=== PATIENT | male | born 1945 | race Caucasian/White ===

== ENCOUNTER 2016-12-14 14:27 | Outpatient (CLI) | payer MEDICARE ==
--- NOTE | 2016-12-14 17:13 | RAD ---
TWO VIEW CHEST: 12/14/16 COMPARISON: 06/23/16 CLINICAL HISTORY: History of dyspnea, malignant neoplasm of bronchus and lung. FINDINGS: Redemonstration of spiculated density occupying the right apex with adjacent linear densities of the small volume right hemithorax. Interstitial prominence of the left lung is again seen. Cardiomedias tinal silhouette is stable. redemonstration of the rightward deviation of the tracheal air column. IMPRESSION: Grossly stable chest radiograph with redemonstration of small volume right hemithorax containing spi culated right apical density and adjacent multifocal linear parenchymal opacification. POS: [facility]
== END 2016-12-14 14:28 | disposition home or self-care (01) ==
LOC: RAD 14:27
PROVIDERS: ATTEND Thoracic Surgery (Cardiothoracic Vascular Surgery)
DX: C34.10 Malignant neoplasm of upper lobe, unspecified bronchus or lung (principal); J98.4 Other disorders of lung
CPT/HCPCS: 71020

== ENCOUNTER 2017-06-14 13:21 | Observation (INO) | payer MEDICARE ==
[2017-06-14 15:23] LABS: #Eosinphils 0.3 thou/uL (0.0-0.7); #Lymphocytes 1.2 thou/uL (1.20-3.40); #Monocytes 0.6 thou/uL (0.11-0.59); #Neutrophils 6.6 thou/uL (1.40-6.50); %Basophils 0.5 % (0.0-1.0); %Eosinophils 3.1 % (0.0-10.0); %Lymphocytes 13.4 % (21.0-51.0); %Monocytes 6.5 % (0.0-10.0); %Neutrophils 76.5 % (42.0-75.0); Mean Corpuscular HGB CONC 32.5 g/dL (32.0-36.0); Mean Corpuscular Hemoglobin 32.8 pg (27.0-31.0); Mean Platelet Volume 7.4 fL (7.4-10.4); Platelet Count 244 thou/uL (130-400); RBC Distribution Width 14.4 % (11.5-14.5); Red Blood Cell (RBC) Count 4.27 mill/uL (4.70-6.10); White Blood Cell (WBC) Count 8.7 thou/uL (4.8-10.8)
[2017-06-14 15:30] LABS: INR-International Normal Ratio 1.1; PTT 28.2 SEC (22.9-36.1); Prothrombin Time 14.2 SEC (12.0-14.7)
--- NOTE | 2017-06-14 15:38 | CT ---
NONCONTRAST HEAD CT 06/14/17 HISTORY: Abnormal weakness of right leg one week ago. Right facial droop. Possible CVA. COMPARISON: 05/25/16. TECHNIQUE: Noncontrast head CT is performed from skull base to skull vertex. FINDINGS: No parenchymal hemorrhage. No extra-axial hematoma. No midline shift. Basilar cisterns are patent. Ag e appropriate atrophy. Cortical miller-white matter differentiation is preserved. Ventricles and sulci are patent and symmetric. There are white matter hypodensities due to chronic small vessel ischemic c hanges. remote lacunar infarct in the left alfaro radiata, bilateral lentiform nuclei and posterior l imb of the left internal capsule. Additional lacunar infarcts are suggested in both thalami. Stable p ostsurgical change involving the right mastoid air cells. Cavernous carotid atherosclerosis. Calvariu m is intact. IMPRESSION: 1. No acute intracranial process. Better interrogation with MRI may be beneficial. 2. Chronic small vessel ischemic change white matter. 3. Chronic lacunar infarcts. POS: [facility]
[2017-06-14 15:44] LABS: ALT (SGPT) 11 U/L (8-55); AST (SGOT) 14 U/L (5-34); Albumin 3.6 g/dL (3.4-4.8); Alkaline Phosphatase 81 U/L (40-150); Anion Gap 11 mmol/L (10-20); BUN (Urea Nitrogen) 15 mg/dL (8.4-25.7); Bilirubin, Total 0.4 mg/dL (0.2-1.2); CK (CPK) 40 U/L (30-200); Calc. Creatinine Clearance 0 mL/min (70-130); Calcium 9.3 mg/dL (7.8-10.44); Carbon Dioxide 28 mmol/L (23-31); Chloride 102 mmol/L (98-107); Estimated GFR-MDRD 57; Globulin 4.2 g/dL (2.4-3.5); Glucose 124 mg/dL (83-110); Potassium 4.1 mmol/L (3.5-5.1); Protein, Total 7.8 g/dL (5.8-8.1); Sodium 137 mmol/L (136-145)
--- NOTE | 2017-06-14 15:46 | RAD ---
SINGLE VIEW OF THE CHEST: 06/14/17 COMPARISON: 05/30/16 HISTORY: CVA, right facial drooping. Patient began to not be able to tell is right leg one week ago. FINDINGS: Single view of the chest shows normal sized cardiomediastinal silhouette. Volume loss and increased density are seen in the right apex which are stable compared to the prior examination. The previously seen central venous catheter has been removed. Increased interstitial lung markings are seen in the right lung. No left sided pleural effusion or infiltrate are seen. There appear to be remote healed l eft rib fractures. IMPRESSION: Stable changes in the right lung apex are lightly secondary to scarring and chronic findings. POS: [facility]
[2017-06-14 15:54] LABS: CKMB 0.9 ng/mL (0-6.6); Troponin I Less than 0.010 ng/mL (< 0.028)
--- NOTE | 2017-06-14 17:32 | PDOC.FPRHP ---
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 Pt states he woke up with these symptoms. Phone notes found per clinic records describing pt being evaluated on Sunday 06/11 by home health nurse w/ significantly decreased strength in the right upper extremity and right lower extremity w/ ascultated R- carotid bruit. HH nurse contacted PCP's office who instructed pt to be evaluated in the ER. Pt states that he has been eating and drinking w/o issue since onset of sxs. Denies any associated headache, chest pain, or other deficits. Pt has COPD and is on 3L home O2. Denies any changes in cough or sputum production. No fever/chills. - Allergies/Adverse Reactions Allergies Allergy/AdvReac Type Severity Reaction Status Date / Time No Known Drug Allergies Allergy Verified 05/25/16 16:31 - Home Medications Medication Instructions Recorded Confirmed Type Amlodipine Besylate [amLODIPine 10 mg PO DAILY 12/24/12 06/14/17 History Besylate] Aspirin 325 mg PO DAILY 12/24/12 06/14/17 History Albuterol Sulfate [Proair HFA] 2 puff INH Q6HR PRN 06/14/17 06/14/17 History Budesonide-Formoterol [Symbicort 1 puff INH BID 06/14/17 06/14/17 History 160-4.5] Finasteride [Proscar] 5 mg PO DAILY 06/14/17 06/14/17 History Ipratropium-Albuterol [Combivent] 2 puff INH QID 06/14/17 06/14/17 History Metoprolol Tartrate 25 mg PO DAILY 06/14/17 06/14/17 History Mirtazapine [Remeron] 30 mg PO HS 06/14/17 06/14/17 History Sertraline HCl 150 mg PO DAILY 06/14/17 06/14/17 History - History PMHx: COPD, HTN, CVA x2, Lung Ca s/p lobectomy, Depression, Bladder Cancer PSHx: R-upper lobectomy, appendectomy, tonsilectomy, partial colectomy FHx: CAD Social: Tobacco abuse, Denies drugs or EtOH - Review of Systems General: denies: fever/chills Eyes: denies: eye pain ENT: denies: rhinorrhea Respiratory: reports: cough, shortness of breath Cardiovascular: denies: chest pain, palpitation Gastrointestinal: denies: nausea, vomiting Skin: denies: rashes Musculoskeletal: denies: pain, swelling Neurological: reports: numbness, weakness Psychological: reports: depression - Vital signs BP: 135/56 HR: 59 RR: 17 Tmax: 98.2 Pox: 95% on 2L Wt: 70 kg - Physical Exam Constitutional: NAD, awake, alert and oriented HEENT: normocephalic and atraumatic, PERRLA, EOMI Neck: supple -Neck: Decreased strength on head rotation to right as compared to left Chest: no-tender to palpation Heart: RRR, normal S1/S2 Lungs: no respiratory distress, good air movement, no retractions -Lungs: scattered wheezes b/l Abdomen: soft, non-tender, bowel sounds present Musculoskeletal: normal structure, ROM grossly normal -Neurological: Right sided facial droop w/o involvement of upper half of face. Decreased sensation to fine touch below knee right leg. Skin: no rash/lesions, capillary refill <2 seconds Heme/Lymphatic: no unusual bruising or bleeding Psychiatric: normal mood and affect FMR H&P: Results - Labs Result Diagrams: 06/14/17 15:15 06/14/17 15:15 Lab results: WBC 8.7 thou/uL (4.8-10.8) 06/14/17 15:15 Hgb 14.0 g/dL (14.0-18.0) 06/14/17 15:15 Hct 43.0 % (42.0-52.0) 06/14/17 15:15 MCV 101.0 fl (80.0-94.0) H 06/14/17 15:15 Plt Count 244 thou/uL (130-400) 06/14/17 15:15 Neutrophils % 76.5 % (42.0-75.0) H 06/14/17 15:15 Sodium 137 mmol/L (136-145) 06/14/17 15:15 Potassium 4.1 mmol/L (3.5-5.1) 06/14/17 15:15 Chloride 102 mmol/L (98-107) 06/14/17 15:15 Carbon Dioxide 28 mmol/L (23-31) 06/14/17 15:15 BUN 15 mg/dL (8.4-25.7) 06/14/17 15:15 Creatinine 1.24 mg/dL (0.6-1.3) 06/14/17 15:15 Glucose 124 mg/dL (83-110) H 06/14/17 15:15 Calcium 9.3 mg/dL (7.8-10.44) 06/14/17 15:15 Total Bilirubin 0.4 mg/dL (0.2-1.2) 06/14/17 15:15 AST 14 U/L (5-34) 06/14/17 15:15 ALT 11 U/L (8-55) 06/14/17 15:15 Alkaline Phosphatase 81 U/L (40-150) 06/14/17 15:15 Creatine Kinase 40 U/L (30-200) 06/14/17 15:15 CK-MB (CK-2) 0.9 ng/mL (0-6.6) 06/14/17 15:15 B-Natriuretic Peptide 77.8 pg/mL (0-100) 06/14/17 15:15 Serum Total Protein 7.8 g/dL (5.8-8.1) 06/14/17 15:15 Albumin 3.6 g/dL (3.4-4.8) 06/14/17 15:15 - EKG Interpretation EKG: NSR, no evidence of ST segment changes - Radiology Interpretation CT scan - head Status: report reviewed by me Additional comment: No acute intracranial abnormality Chronic small vessel disease and chronic lacunar infarcts FMR H&P: A/P - Problem List (1) CVA (cerebral vascular accident) Current Visit: Yes Status: Acute Code(s): I63.9 - CEREBRAL INFARCTION, UNSPECIFIED Assessment and Plan: No hemorrhagic stroke seen on CTA Will disregard allowing permissive HTN w/ sxs starting one week ago Sxs appear to have somewhat improved from clinic phone notes describing HH nurse initial assessment Obtain MRI brain and MRA neck to eval for possible Carotid artery stenosis Bedside swallow eval prior to allowing pt to eat Start ASA and high intensity statin Neuro checks q4 hrs Fall percautions PT/OT consult neuro in the AM Will check TSH/FLP A1c 5.8 from 03/25/17 (2) Hypertension Current Visit: No Status: Acute Code(s): I10 - ESSENTIAL (PRIMARY) HYPERTENSION Assessment and Plan: Outside intial 24 hour period to allow permissive HTN Cont. w/ home BP meds (3) Bladder cancer Current Visit: No Status: Chronic Assessment and Plan: Pt seeing urology outpatient Stable Will continue to monitor (4) COPD (chronic obstructive pulmonary disease) Current Visit: No Status: Chronic Assessment and Plan: Wheezing on exam Will restart home INH and have nebs available PRN CXR negative for infiltrate (5) History of malignant neoplasm of upper lobe bronchus or lung Current Visit: No Status: Chronic Code(s): Z85.118 - PERSONAL HISTORY OF MALIGNANT NEOPLASM OF BRONCHUS AND LUNG Assessment and Plan: On 3L O2 at home Cont. to monitor Stable (6) Tobacco abuse Current Visit: No Status: Chronic Code(s): Z72.0 - TOBACCO USE Assessment and Plan: nicoderm patch Counseling Attending Addendum - Attending Addendum Date/Time: 06/14/17 0947 I personally evaluated the patient and discussed the management with Dr. Nice. I agree with the History, Examination, Assessment and Plan documented above with any addition or exceptions noted below.
[2017-06-14] MEDS ORDERED: Ondansetron ODT 4 MG TAB SL PRN (19:58)
[2017-06-14] MEDS ORDERED: Sodium Chloride 0.9% 1,000 ML IV SCH (19:58)
[2017-06-14] MEDS ORDERED: Ondansetron HCl/PF 4 MG/2 ML Vial IVP PRN (19:58)
[2017-06-14 20:04] VITALS: BMI 23.7
[2017-06-14] MEDS ORDERED: PROVENTIL INHALER 6.7 G (200 INHALATIONS) INH PRN (20:27)
[2017-06-14] MEDS ORDERED: Acetaminophen 325 MG TAB PO PRN (20:27)
[2017-06-14 20:45] LABS: Cardiac Risk 2.9 (Less than 4.5)
[2017-06-14] MEDS ORDERED: Atorvastatin Calcium 40 MG TAB PO SCH (21:00)
[2017-06-14] MEDS ORDERED: Mirtazapine 30 MG TAB PO SCH (21:00)
[2017-06-14] MEDS: hydrALAZINE 25 MG TAB PO SCH (21:39)
[2017-06-14] MEDS: Metoprolol Tartrate 25 MG TAB PO SCH (21:40)
[2017-06-15] MEDS ORDERED: Mometasone/Formoterol 120 PUFF INHALER INH SCH (06:30)
[2017-06-15] MEDS: hydrALAZINE 25 MG TAB PO SCH (08:45)
[2017-06-15] MEDS: Metoprolol Tartrate 25 MG TAB PO SCH (08:45)
--- NOTE | 2017-06-15 08:52 | PDOC.FM ---
- Subjective Subjective: No acute events overnight. Pt reports he feels his strength has resolved and some feeling in LE has returned. He does have persistent rt facial droop. Denies CP, SOB, NVDC. Pt was sinus bradycardia overnight, no arrhythmias noted on tele. - Objective Vital Signs & Weight: Vital Signs (12 hours) Temp Pulse Resp BP Pulse Ox 06/15/17 08:45 55 L 06/15/17 07:35 97.3 F L 55 L 20 114/66 99 06/15/17 06:50 92 L 06/15/17 06:48 51 L 16 92 L 06/15/17 04:00 98.3 F 59 L 18 157/74 H 96 06/15/17 00:00 97.9 F 48 L 20 135/69 95 06/14/17 23:30 45 L 06/14/17 21:39 62 Weight Weight 70.76 kg I&O: 06/14/17 06/15/17 06/16/17 06:59 06:59 06:59 Intake Total 320 Output Total 300 Balance 20 Result Diagrams: 06/14/17 15:15 06/14/17 15:15 <Toby Shleton - Last Filed: 06/15/17 08:58> - Objective Vital Signs & Weight: Vital Signs (12 hours) Temp Pulse Pulse Pulse Resp BP BP 06/15/17 09:55 54 L 54 L 151/69 H 167/104 H 06/15/17 08:56 97.3 F L 55 L 20 06/15/17 08:45 55 L 06/15/17 07:35 97.3 F L 55 L 20 06/15/17 06:50 06/15/17 06:48 51 L 16 06/15/17 04:00 98.3 F 59 L 18 06/15/17 00:00 97.9 F 48 L 20 06/14/17 23:30 45 L BP Pulse Ox 06/15/17 09:55 06/15/17 08:56 06/15/17 08:45 06/15/17 07:35 114/66 99 06/15/17 06:50 92 L 06/15/17 06:48 92 L 06/15/17 04:00 157/74 H 96 06/15/17 00:00 135/69 95 06/14/17 23:30 Weight Weight 70.76 kg I&O: 06/14/17 06/15/17 06/16/17 06:59 06:59 06:59 Intake Total 320 Output Total 300 Balance 20 Result Diagrams: 06/14/17 15:15 06/14/17 15:15 <NavarreteJoshua dubose Sudhir - Last Filed: 06/15/17 11:26> Phys Exam - Physical Examination Constitutional: NAD HEENT: PERRLA, moist MMs, sclera anicteric Neck: no nodes, no JVD Respiratory: wheezing present diffuse rhonchi, end expiratory wheezes Cardiovascular: RRR, no significant murmur, no rub Gastrointestinal: soft, non-tender, no distention, positive bowel sounds Musculoskeletal: no edema, pulses present Neurological: moves all 4 limbs rt facial droop, strength UE and LE 5/5 <Toby Shelton - Last Filed: 06/15/17 08:58> Dx/Plan (1) CVA (cerebral vascular accident) Code(s): I63.9 - CEREBRAL INFARCTION, UNSPECIFIED Status: Acute (2) COPD (chronic obstructive pulmonary disease) Status: Chronic (3) Bladder cancer Status: Chronic (4) History of malignant neoplasm of upper lobe bronchus or lung Code(s): Z85.118 - PERSONAL HISTORY OF MALIGNANT NEOPLASM OF BRONCHUS AND LUNG Status: Chronic (5) Hypertension Code(s): I10 - ESSENTIAL (PRIMARY) HYPERTENSION Status: Acute (6) Tobacco abuse Code(s): Z72.0 - TOBACCO USE Status: Chronic - Plan Plan: 1) CVA: pt strength has returned to bl upper extremities. Continue asa statin. Scheduled for MRI/MRA today as pt was initially scheduled for both procedures on tuesday. CT scan did not show any evidence of hemorrhagic conversion. Considering timeleine of initial insult, pt likely stable for DC to home with OP f/u pending MRI/MRA. 2)COPD: Continue duonebs + albuterol. Maintain sats 88-92%. Rhonchi and wheezing on exam, cxr negative. Stable. 3) H/O bladder cancer: sees urology OP, stable. OK for DC to home with OP f/u 4) H/O malignancy rt bronchus: stable; supportive care and f/u OP. Continue COPD management with albuterol and duonebs. 5) HTN: Cont home meds. No need for permissive htn as pts initial insult was approx 1 week ago. 6) Tobacco abuse. [employer] cessation <Toby Shelton - Last Filed: 06/15/17 08:58> Attending Addendum - Attending Addendum Date/Time: 06/15/17 0085 I personally evaluated the patient and discussed the management with Dr. Shelton. I agree with the History, Examination, Assessment and Plan documented above with any addition or exceptions noted below. Patient admitted for subacute neurological deficit over the last 1 week. He denies complaints this morning and is ambulating well. Strength near baseline per patient. Awaiting MRI/MRA and therapy recs. Patient declines any SNF or inpatient rehab plans and would desire to go home. If MRI shows new infarct, will need escalation of therapy to Aggrenox. Possible discharge once recs and MRI read back. <Joshua Navarrete - Last Filed: 06/15/17 11:26>
[2017-06-15] MEDS ORDERED: Amlodipine 10 MG TAB PO SCH (09:00)
[2017-06-15] MEDS ORDERED: Enoxaparin Sodium 30 MG/0.3 ML SYRINGE SC SCH (09:00)
[2017-06-15] MEDS ORDERED: Finasteride 5 MG TAB PO SCH (09:00)
[2017-06-15] MEDS ORDERED: Aspirin 81 mg Enteric Coated Tablet PO SCH (09:00)
--- NOTE | 2017-06-15 15:17 | PQF ---
CLINICAL DOCUMENTATION IMPROVEMENT CLARIFICATION FORM: ICD-10 Updated PLEASE DO AN ADDENDUM TO THE PROGRESS NOTE WITH ANY DOCUMENTATION UPDATES OR ADDITIONS AND CARRY THROUGH TO DC SUMMARY. THANK YOU. DATE: 06/15/17 ATTN: Dr. Shelton/ Attending Dr. Joshua Navarrete Please exercise your independent, professional judgment in responding to the clarification form. Clinical indicators are provided on the bottom of this form for your review Please check appropriate box(s): [ x ] Chronic Respiratory Failure only [ x ] with Hypoxia [ ] with Hypercapnia [ ] Other diagnosis [ ] Unable to determine In addition, please specify: Present on Admission (POA): [x ] Yes [ ] No [ ] Unable to determine For continuity of documentation, please document condition throughout progress notes and discharge summary. Thank You. CLINICAL INDICATORS - SIGNS / SYMPTOMS / LABS H&P: PT HAS COPD AND IS ON 3L HOME O2. VS: RR 17, Pox: 95% ON 2L RISKS: H&P: PMHX: COPD, HTN, CVA X2, HX OF MALIGNANT NEOPLASM OF UPPER LOBE BRONCHUS/ LUNG. ON 3L O2 AT HOME. CHRONIC TOBACCO USE. TREATMENT: CPOE 06/14: RESP: O2 TO KEEP SATS 92% H&P: WILL RESTART HOME INH & HAVE NEBS AVAILABLE PRN. Thank you, Jackeline (This form is maintained as a part of the permanent medical record) 2015 [employer]. All Rights Reserved Jackeline Smalls RN, BSN [email or web address] Office: [phone] [facility]
[2017-06-15 15:38] VITALS: BP 145/67; TEMP 97.5
--- NOTE | 2017-06-15 16:37 | MRI ---
MR ANGIOGRAM OF THE NECK WITH AND WITHOUT CONTRAST: 06/15/17 HISTORY: CVA. Large vessel occlusion. Stroke. COMPARISON: None. TECHNIQUE: MR angiogram of the neck is performed in the axial plane utilizing 2D [id number] imaging. Postcon trast imaging is performed in the coronal plane. Maximum intensity projection images are submitted fo r interpretation. FINDINGS: NONCONTRAST MR ANGIOGRAM OF THE NECK: There is symmetric flow related signal in the visualized cervical carotid arteries. There is no signi ficant stenosis. There is appropriate flow related signal in the visualized cervical vertebral arteries. Left vertebra l artery is dominant. Maximum intensity projection images demonstrate stacking artifact without evide nce of significant stenosis. POSTCONTRAST MR ANGIOGRAM: There is appropriate enhancement and luminal diameter of the aortic arch. RIGHT CAROTID: The right carotid artery origin has appropriate enhancement and luminal diameter. The innominate amy ry is unremarkable. There appears to be short segment high grade stenosis involving the origin of the right common carotid artery. There is appropriate enhancement of the proximal mid and distal common carotid artery. The right carotid bifurcation and internal carotid artery have appropriate enhancemen t and luminal diameter. LEFT CAROTID: The origin of the left carotid artery has appropriate enhancement and luminal diameter. The left comm on carotid, carotid bifurcation, and internal carotid artery have appropriate enhancement and luminal diameter. The origin of both vertebral arteries is grossly unremarkable. There is short segment of mild stenosi s involving the mid left vertebral artery. Left vertebral artery is dominant. There appears to be significant stenosis involving the origin of the right subclavian artery. Mild stenosis of the left subclavian artery, proximal to the left vertebral artery origin is noted. N o evidence of decreased flow related signal on the axial T2 weighted images to suggest a left sided s ubclavian steal. IMPRESSION: 1. 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 Conventional angiography is recommended. 2. Mild short segment stenosis involving the left vertebral artery. POS: [facility]
--- NOTE | 2017-06-15 16:45 | MRI ---
BRAIN MRI WITH AND WITHOUT CONTRAST: HISTORY: CVA. Stroke. Abnormal weakness on the right leg 1 week ago. Right facial droop. COMPARISON: 12/24/12. TECHNIQUE: Brain MRI is performed with and without intravenous Gadolinium administration. Multisequential, mult iplanar imaging is performed. FINDINGS: No hemorrhage on the axial gradient echo sequence. Stable T2 and FLAIR white matter hyperintensities , likely due to chronic small-vessel ischemic change. There is slight interval increase in T@ hyperi ntensity and STIR hyperintensity involving the brainstem, nonspecific. Central arterial flow voids are maintained. No restricted diffusion. Adequate aeration of the sinuses and mastoid air cells. No parenchymal mass, mass effect, or midline shift. Brain volume is age appropriate. Cortical miller- white matter differentiation is preserved. The ventricles and sulci are patent and symmetric. Bilateral ocular lens implants are noted. No pathologic enhancement of the brain parenchyma. IMPRESSION: 1. Chronic small-vessel ischemic change of the white matter. 2. Absent restricted diffusion. No acute infarct. 3. No pathologic enhancement of the brain parenchyma. POS: [facility]
--- NOTE | 2017-06-16 14:43 | DIS-2 ---
LOCATION: [place], [place] DATE OF ADMISSION: 06/14/2017 DATE OF DISCHARGE: 06/15/2017 RESIDENT PHYSICIAN: Dr. Toby Shelton ADMITTING ATTENDING: Dr. Barry Padron DISCHARGE ATTENDING: Dr. Joshua Navarrete CONSULTATIONS: None. PROCEDURES: 1. Brain CT done on 07/11/2017 showed no acute intracranial process, chronic small vessel ischemic c hanges of white matter and chronic lacunar infarcts. 2. Chest x-ray done on 06/14/2017 showed stable changes in the right lung apex, likely secondary to scarring and chronic findings. 3. Brain MRI done on 06/15/2017 showed chronic small vessel ischemic changes of the white matter, ab sent restricted diffusing of acute infarct. No pathologic enhancement of the brain parenchyma. 4. Neck MRA done on 06/15/2017 showed significant stenosis of the origin of the right common carotid artery and the right subclavian artery. Mild short segment stenosis involving the left vertebral ar marvin. PRIMARY DIAGNOSES: 1. Transient ischemic attack. 2. Cerebrovascular accident. SECONDARY DIAGNOSES: 1. History of malignant neoplasm of the upper lobe. 2. Bladder cancer. 3. Hypertension. 4. Chronic obstructive pulmonary disease, O2 dependent. 5. Macrocytic anemia. DISCHARGE MEDICATIONS: 1. ProAir 2 puffs q.6 hours as needed. 2. Amlodipine 10 mg p.o. daily. 3. Aggrenox 1 capsule 25 mg/200 mg 1 capsule p.o. b.i.d. 4. Symbicort 1 puff inhaled b.i.d. 5. Proscar 5 mg p.o. daily. 6. Hydralazine 25 mg p.o. b.i.d. 7. Combivent 2 puffs inhaled q.i.d. 8. Lovastatin 40 mg p.o. at bedtime. 9. Metoprolol 12.5 mg p.o. b.i.d. 10. Remeron 30 mg p.o. at bedtime. 11. Sertraline 150 mg p.o. daily. DISCONTINUED MEDICATIONS: Aspirin. HISTORY OF PRESENT ILLNESS AND HOSPITAL COURSE: The patient is a 72-year-old male with a past histor y of 2 prior CVAs and residual right-sided deficits, who came in for evaluation of the worsening righ t-sided weakness, left lower extremity numbness upon wakening one week prior to presentation to the [facility] The patient reports that he just woke up with the symptoms. On review of clinic chart, the pravin mccain was evaluated by home health nurse who noted that there was significantly decreased strength in th e right upper extremity and right lower extremity with an auscultated right carotid bruit. The pravin mccain reports he was eating and drinking without issue started. He denied any associated headache, ches t pain or other deficits. He does have COPD and is on 3 liters O2 at home at baseline. This was unc hanged on presentation. The brain and neck MRA showed findings as listed above. Cardiovascular Surg casey was called and they did report that there was not much they could do given the location of the st enos. The patient's neuro exam greatly improved overnight and on exam the next day, the patient anton d 5/5 strength with sensation intact of both upper and lower extremities. Cranial nerves II-XII were intact. On presentation to the ED it should be noted that there was no carotid bruit present on exa m. Ultimately, the patient had an uncomplicated hospital course, was observed on the stroke telemetry un it overnight and discharged home the following day after the results of his brain MRI and neck MRA re sulted. Given he had these TIA-like symptoms with ultimate resolution, the patient was declared fail ed aspirin therapy and switched to Aggrenox. DISCHARGE INSTRUCTIONS: The patient left the hospital in stable condition. DISCHARGE LOCATION: 1. Location: Home. 2. Diet: Heart healthy. 3. Activity: ad aiyana. 4. Followup: Follow up with primary care physician.
--- NOTE | 2017-06-19 00:26 | EKG ---
Test Reason : Blood Pressure : / mmHG Vent. Rate : 060 BPM Atrial Rate : 060 BPM P-R Int : 180 ms QRS Dur : 090 ms QT Int : 426 ms P-R-T Axes : 019 009 059 degrees QTc Int : 426 ms Normal sinus rhythm Normal ECG Confirmed by ISRAEL SALAZAR ([id number]), television news video editor SONJA CRESPO ([id number]) on 06/19/2017 12:25:22 AM Referred By: Confirmed By:ISRAEL SALAZAR
== END 2017-06-15 17:30 | disposition home or self-care (01) ==
LOC: ERS 13:21 → INTOOBSV 15:56 → 2SE 15:56
PROVIDERS: ADMIT Student in an Organized Health Care Education/Training Program; ATTEND Student in an Organized Health Care Education/Training Program
DX: I63.9 Cerebral infarction, unspecified (principal); R29.810 Facial weakness; G81.91 Hemiplegia, unspecified affecting right dominant side; G45.9 Transient cerebral ischemic attack, unspecified; J44.9 Chronic obstructive pulmonary disease, unspecified; C67.9 Malignant neoplasm of bladder, unspecified; C34.10 Malignant neoplasm of upper lobe, unspecified bronchus or lung; I10 Essential (primary) hypertension; D53.9 Nutritional anemia, unspecified; Z79.899 Other long term (current) drug therapy; Z99.81 Dependence on supplemental oxygen
CPT/HCPCS: 70450; 70549; 70553; 71045; 80061; 82550; 82553; 83880; 84484; 85610; 85730; 93005; 94640; 97116; 97139 ×2; 99285; 99406; G0378; G8978; G8979; G8980; 36415; 80053; 84443; 85025; J1650

== ENCOUNTER 2017-07-18 14:27 | Outpatient (CLI) | payer MEDICARE ==
--- NOTE | 2017-07-18 15:32 | RAD ---
2 VIEWS CHEST: Date: 07/18/17 COMPARISON: 12/14/16. HISTORY: Malignant neoplasm of upper lobe of the lungs. FINDINGS: Two views of the chest show a normal sized cardiomediastinal silhouette. There is opacification in th e right upper lung with volume loss seen in this location. No pleural effusion is seen. No significan t change has occurred since the prior exam. IMPRESSION: Stable opacity of the right upper lobe. POS: [facility]
== END 2017-07-18 14:28 | disposition home or self-care (01) ==
LOC: RAD 14:27
PROVIDERS: ATTEND Thoracic Surgery (Cardiothoracic Vascular Surgery)
DX: C34.10 Malignant neoplasm of upper lobe, unspecified bronchus or lung (principal); R91.8 Other nonspecific abnormal finding of lung field
CPT/HCPCS: 71046

== ENCOUNTER 2017-09-15 06:44 | Day surgery (SDC) | payer MEDICARE ==
[2017-09-13 12:10] VITALS: BMI 22.8
--- NOTE | 2017-09-15 10:49 | OP ---
DATE OF PROCEDURE: 09/15/2017 PROCEDURE: Esophagogastroduodenoscopy with Bridges dilatation and gastric biopsy. . PHYSICIAN: Dr. Henning ANESTHESIA: Medication given per Anesthesiology Department. PREPROCEDURE DIAGNOSES: 1. Dysphagia. 2. Weight loss. POSTOPERATIVE DIAGNOSES: 1. Normal esophagus with a variable Z-line at 40 cm. 2. Status post empiric esophageal dilatation with 54 and 58 [place] Bridges. 3. Normal stomach. 4. Mild bulbar duodenitis, otherwise normal duodenum. PROCEDURE IN DETAIL: A written consent was obtained prior to procedure. After adequate sedation, full view endoscope was advanced down the stomach under direct vision to the second portion of duodenum. The second portion and first portion appeared normal. Mucosa patchy erythema was noted in the duodenum. The pylorus is patent. The gastric antrum, body, fundus, and cardia all appeared normal. Biopsies were obtained from the gastric antrum for H. pylori. Retroflexion showed a small hiatal hernia. The Z-line was noted at 40 cm from the incisors and appeared to be variable. The distal, mid, and upper esophagus appeared normal. The scope was removed. Dilatation was performed using 54 [place] Bridges with no resistance and 58 [place] Bridges with little resistance. Repeat endoscopy did not show any complication. The patient tolerated the procedure well. ASSESSMENT: 1. Status post empiric dilatation of the esophagus with 54 and 58 [place] Bridges, no esophageal abnormality seen. 2. Small hiatal hernia. 3. Mild bulbar duodenitis. PLAN: 1. Follow up in the office in 3-4 weeks. 2. Await biopsy result. 3. Resume [facility]. [facility]
[2017-09-15] MEDS ORDERED: Lidocaine 1% PF 5 ML VIAL ONE (12:27)
[2017-09-15] MEDS ORDERED: PROPOFOL 200 MG/20 ML VIAL ONE (12:27)
== END 2017-09-15 11:04 | disposition home or self-care (01) ==
LOC: SDC 06:44
PROVIDERS: ATTEND Internal Medicine Gastroenterology
PROC: 0DB78ZX Excision of Stomach, Pylorus, Via Natural or Artificial Opening Endoscopic, Diagnostic (ICD-10-PCS; principal; 2017-09-15)
PROC: 0D7 Gastrointestinal System, Dilation (ICD-10-PCS; 2017-09-15)
DX: K29.80 Duodenitis without bleeding (principal); K44.9 Diaphragmatic hernia without obstruction or gangrene; K31.9 Disease of stomach and duodenum, unspecified; I10 Essential (primary) hypertension; J44.9 Chronic obstructive pulmonary disease, unspecified; F17.200 Nicotine dependence, unspecified, uncomplicated; Z86.73 Personal history of transient ischemic attack (TIA), and cerebral infarction without residual deficits; Z79.899 Other long term (current) drug therapy; Z79.82 Long term (current) use of aspirin
CPT/HCPCS: 88305; 88312; J2001; J2704; J7620

== ENCOUNTER 2018-01-18 11:39 | Outpatient (CLI) | payer MEDICARE ==
--- NOTE | 2018-01-18 13:34 | RAD ---
PA AND LATERAL VIEWS CHEST: Date: 01/18/18 HISTORY: Malignant neoplasm upper lobe. FINDINGS: Comparison made with exam of 07/18/17. Volume loss in the right lung with opacification/scarring in the right upper lobe is again seen. The heart size is normal. The aorta is tortuous. The left lung is clear. The bony structures are stable. IMPRESSION: Stable exam. No acute process. POS: [facility]
== END 2018-01-18 11:40 | disposition home or self-care (01) ==
LOC: RAD 11:39
PROVIDERS: ATTEND Thoracic Surgery (Cardiothoracic Vascular Surgery)
DX: C34.10 Malignant neoplasm of upper lobe, unspecified bronchus or lung (principal)
CPT/HCPCS: 71046

== ENCOUNTER 2018-10-17 09:32 | Outpatient (CLI) | payer MEDICARE ==
--- NOTE | 2018-10-17 10:07 | RAD ---
PA AND LATERAL VIEWS CHEST: Date: 10/17/18 HISTORY: Dyspnea. FINDINGS: Comparison made with exam of 01/18/18. The heart size is normal. The aorta is tortuous. Volume loss in the right hemithorax with opacificati on/scarring in the right upper lobe is stable. Left lung is clear. IMPRESSION: Stable exam. POS: [facility]
== END 2018-10-17 09:33 | disposition home or self-care (01) ==
LOC: RAD 09:32
PROVIDERS: ATTEND Internal Medicine Pulmonary Disease
DX: R06.00 Dyspnea, unspecified (principal)
CPT/HCPCS: 71046